=== PATIENT | male | born 1980 | race African-American/Black ===

== ENCOUNTER 2016-10-24 23:51 | Emergency (ER) | payer OTHER ==
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
== END 2016-10-25 01:40 | disposition home or self-care (01) ==
LOC: ER 23:51
DX: M54.2 Cervicalgia (principal); M25.521 Pain in right elbow; M54.9 Dorsalgia, unspecified; M25.571 Pain in right ankle and joints of right foot; M25.531 Pain in right wrist; V49.40XA Driver injured in collision with unspecified motor vehicles in traffic accident, initial encounter; R40.0 Somnolence; Z53.20 Procedure and treatment not carried out because of patient's decision for unspecified reasons
CPT/HCPCS: 99284

== ENCOUNTER 2017-08-29 07:20 | Emergency (ER) | payer SELFPAY ==
[2017-08-29 07:28] VITALS: BP 126/76
[2017-08-29] MEDS ORDERED: IBUPROFEN 800 MG TABLET PO ONE (07:34)
[2017-08-29] MEDS ORDERED: IBUPROFEN 800 MG TABLET ONE (07:38)
--- NOTE | 2017-08-29 07:57 | RADIOLOGY REPORT (SQ) ---
EXAM DESCRIPTION: Left hand, 3 views CLINICAL HISTORY: crush injury COMPARISON: None. FINDINGS: 3 views of the left hand. No acute fracture or dislocation. Normal osseous mineralization. No radiopaque foreign bodies or subcutaneous air. IMPRESSION: No acute fracture or dislocation.
--- NOTE | 2017-08-29 08:07 | ER Document Report ---
HPI - HPI Patient complains to provider of: Left hand injury Onset: Yesterday Onset/Duration: Sudden Quality of pain: Achy Pain Level: 4 Context: Patient states that he accidentally got his left hand closed between the pneumatic doors at the grocery store. Patient states that he is left-hand dominant. Associated Symptoms: Other - Left hand pain Exacerbated by: Movement Relieved by: Denies Similar symptoms previously: No Recently seen / treated by doctor: No - ROS ROS below otherwise negative: Yes Systems Reviewed and Negative: Yes All other systems reviewed and negative - NEURO Neurology: DENIES: Weakness - REPRODUCTIVE Reproductive: DENIES: : - MUSCULOSKELETAL Musculoskeletal: REPORTS: Extremity pain - left hand. DENIES: Swelling - DERM Skin Color: Normal Skin Problems: None Past Medical History - General Information source: Patient - Social History Smoking Status: Current Every Day Smoker Smoking Education Provided: Yes Frequency of alcohol use: Occasional Drug Abuse: None Occupation: Painting Family History: CAD - father Patient has suicidal ideation: No Patient has homicidal ideation: No - Past Medical History Cardiac Medical History: Reports: Hx Hypertension - does not require meds Renal/ Medical History: Denies: Hx Peritoneal Dialysis Musculoskeltal Medical History: Reports Hx Arthritis Surgical Hx: Negative - Immunizations Immunizations up to date: Yes Hx Diphtheria, Pertussis, Tetanus Vaccination: Yes Vertical Provider Document - CONSTITUTIONAL Agree With Documented VS: Yes Exam Limitations: No Limitations General Appearance: WD/WN, No Apparent Distress - INFECTION CONTROL TRAVEL OUTSIDE OF THE [place] IN LAST 30 DAYS: No - HEENT HEENT: Atraumatic, Normocephalic - NECK Neck: Normal Inspection - RESPIRATORY Respiratory: No Respiratory Distress - CARDIOVASCULAR Pulses: Normal: Radial - BACK Back: Normal Inspection - MUSCULOSKELETAL/EXTREMETIES Musculoskeletal/Extremeties: MAEW, Tender - tenderness to left thumb, Left 1,2, 3 metacarpals, no deformity, no edema, no ecchymosis, No Edema. negative: Eccymosis - NEURO Level of Consciousness: Awake, Alert, Appropriate Motor/Sensory: No Motor Deficit Notes: No tendon deficit - DERM Integumentary: Warm, Dry, No Rash Course - Vital Signs Vital signs: Temp Pulse Resp BP Pulse Ox 97.3 F 89 14 126/76 H 98 08/29/17 07:27 08/29/17 07:27 08/29/17 07:27 08/29/17 07:27 08/29/17 07:27 - Diagnostic Test Radiology reviewed: Reports reviewed Procedures - Immobilization Left Thumb Pre-Proc Neuro Vasc Exam: Normal Immobilizer type: Thumb spica Performed by: PCT Post-Proc Neuro Vasc Exam: Normal Alignment checked and good: Yes Discharge - Discharge Clinical Impression: Crush injury Left thumb sprain Qualifiers: Encounter type: initial encounter Sprain of finger site: unspecified site Qualified Code(s): S63.602A - Unspecified sprain of left thumb, initial encounter Sprain of hand, left Qualifiers: Encounter type: initial encounter Qualified Code(s): S63.92XA - Sprain of unspecified part of left wrist and hand, initial encounter Condition: Stable Disposition: HOME, SELF-CARE Instructions: Ice & Elevation ([facility]), Sprain ([facility]), Sprained Thumb ([facility]), Temporary Splint ([facility]) Additional Instructions: Return immediately for any new or worsening symptoms Followup with your primary care provider, call tomorrow to make a followup appointment Follow-up with orthopedics, call Wednesday for an appointment for recheck Prescriptions: Naproxen [Naprosyn 250 Nmg Tablet] 1 tab PO BID #14 tablet Forms: Smoking Cessation Education, Return to Work Referrals: ERIC WYATT DO [ACTIVE STAFF] - Follow up as needed
[2017-08-29] MEDS ORDERED: HYDROCODONE/ACETAMINOPHEN 5-325 MG TABLET PO ONE (08:27)
== END 2017-08-29 08:56 | disposition home or self-care (01) ==
LOC: ER 07:20
PROC: 2W3HX1Z Immobilization of Left Thumb using Splint (ICD-10-PCS; principal; 2017-08-29)
DX: S63.602A Unspecified sprain of left thumb, initial encounter (principal); S63.92XA Sprain of unspecified part of left wrist and hand, initial encounter; M79.642 Pain in left hand; W23.0XXA Caught, crushed, jammed, or pinched between moving objects, initial encounter; Y92.512 Supermarket, store or market as the place of occurrence of the external cause
CPT/HCPCS: 99283

== ENCOUNTER 2017-08-30 14:48 | Emergency (ER) | payer SELFPAY ==
--- NOTE | 2017-08-30 17:27 | RADIOLOGY REPORT (SQ) ---
EXAM DESCRIPTION: WRIST LEFT 3 VIEWS COMPLETED DATE/TIME: 08/30/2017 5:16 pm REASON FOR STUDY: wrist pain COMPARISON: 08/29/2017 TECHNIQUE: Three view series of the left ribs LIMITATIONS: None. FINDINGS: Overlying cast is identified. Alignment appears unchanged. IMPRESSION: Overlying cast. Alignment appears unchanged TECHNICAL DOCUMENTATION: JOB ID: [id number] [employer]- All Rights Reserved Reading location - IP/workstation name: [email or web address]
[2017-08-30] MEDS ORDERED: HYDROCODONE/ACETAMINOPHEN 5-325 MG TABLET PO ONE (17:47)
--- NOTE | 2017-08-30 17:49 | ER Document Report ---
ED Hand/Wrist Injury - General Chief Complaint: Wrist Pain Stated Complaint: LEFT WRIST PAIN Time Seen by Provider: 08/30/17 17:37 Mode of Arrival: Ambulatory Information source: Patient Notes: 37-year-old male presented to ED for swelling to his left hand. He states that he was seen in the ED today for increase in swelling to the left hand after he was seen 2 days ago for a left wrist injury. He states he had an x-ray done at that time and a splint applied. He states he was supposed to go to orthopedics but he could not get in there today and his hand had increased in pain due to the swelling. He states he had been elevating and icing the hand. He states he had a hard cast on and could not take it off. Patient did have a splint on his hand. TRAVEL OUTSIDE OF THE [place] IN LAST 30 DAYS: No - HPI Injury to: Hand - Patient had a injury on left wrist 2 days ago and was seen in the emergency room and a splint applied. He states it was too tight and it was swelling Onset: Other - 2 days ago Where: Public place Quality of pain: Throbbing Severity: Severe Pain Level: 5 Context: Other - Injury when his hand got caught in a pneumatic door at a grocery store - Related Data Allergies/Adverse Reactions: No Known Allergies Allergy (Verified 02/12/15 21:05) Past Medical History - General Information source: Patient - Social History Smoking Status: Current Every Day Smoker Cigarette use (# per day): Yes Smoking Education Provided: Yes - 4 minutes Frequency of alcohol use: Occasional Drug Abuse: None Occupation: [employer] Family History: CAD - father Patient has suicidal ideation: No Patient has homicidal ideation: No - Past Medical History Cardiac Medical History: Reports: Hx Hypertension - does not require meds Pulmonary Medical History: Reports: None EENT Medical History: Reports: None Neurological Medical History: Reports: None Endocrine Medical History: Reports: None Renal/ Medical History: Reports: None Malignancy Medical History: Reports None GI Medical History: Reports: None Musculoskeltal Medical History: Reports Hx Arthritis Skin Medical History: Reports None Psychiatric Medical History: Reports: None Traumatic Medical History: Reports: Hx Fractures Infectious Medical History: Reports: None Surgical Hx: Negative Past Surgical History: Reports: None - Immunizations Immunizations up to date: Yes Hx Diphtheria, Pertussis, Tetanus Vaccination: Yes Review of Systems - Review of Systems Constitutional: No symptoms reported EENT: No symptoms reported Cardiovascular: No symptoms reported Respiratory: No symptoms reported Gastrointestinal: No symptoms reported Genitourinary: No symptoms reported Male Genitourinary: No symptoms reported Musculoskeletal: No symptoms reported, Other - Swelling to left hand and wrist Skin: No symptoms reported Hematologic/Lymphatic: No symptoms reported Neurological/Psychological: No symptoms reported -: Yes All other systems reviewed and negative Physical Exam - Vital signs Vitals: Temp Pulse Resp BP Pulse Ox 98.3 F 87 15 119/80 100 08/30/17 15:10 08/30/17 15:10 08/30/17 15:10 08/30/17 15:10 08/30/17 15:10 Interpretation: Normal - General General appearance: Appears well, Alert - HEENT Head: Normocephalic, Atraumatic Eyes: Normal Pupils: PERRL - Respiratory Respiratory status: No respiratory distress Chest status: Nontender Breath sounds: Normal Chest palpation: Normal - Cardiovascular Rhythm: Regular Heart sounds: Normal auscultation Murmur: No - Abdominal Inspection: Normal Distension: No distension Bowel sounds: Normal Tenderness: Nontender Organomegaly: No organomegaly - Back Back: Normal, Nontender - Extremities General upper extremity: Normal color, Normal temperature General lower extremity: Normal inspection, Nontender, Normal color, Normal ROM , Normal temperature, Normal weight bearing. No: Scott's sign Hand: Tender, No evidence of human bite, No evidence of FB, Swelling, Other - Patient had a splint applied yesterday. His fingers were mildly swollen complained of pain to his hands wrist and fingers decreased range of motion due to the splint. - Neurological Neuro grossly intact: Yes Cognition: Normal Orientation: AAOx4 [place] Coma Scale Eye Opening: Spontaneous [place] Coma Scale Verbal: Oriented [place] Coma Scale Motor: Obeys Commands [place] Coma Scale Total: 15 Speech: Normal Motor strength normal: LUE, RUE, LLE, RLE Sensory: Normal - Psychological Associated symptoms: Normal affect, Normal mood - Skin Skin Temperature: Warm Skin Moisture: Dry Skin Color: Normal Course - Re-evaluation Re-evalutation: 08/30/17 20:32 Hemant wraps removed from splint and reapplies looser to decrease the swelling to the left hand and wrist patient states that this did decrease the pain. Patient was given a [place] while in the emergency room and instructed to follow- up with orthopedic and his primary care doctor as previously instructed. - Vital Signs Vital signs: Temp Pulse Resp BP Pulse Ox 97.9 F 75 18 110/75 94 08/30/17 18:01 08/30/17 18:01 08/30/17 18:01 08/30/17 18:01 08/30/17 18:01 - Diagnostic Test Radiology reviewed: Image reviewed, Reports reviewed Discharge - Discharge Clinical Impression: Sprain of hand, left Qualifiers: Encounter type: subsequent encounter Qualified Code(s): S63.92XD - Sprain of unspecified part of left wrist and hand, subsequent encounter Condition: Stable Disposition: HOME, SELF-CARE Additional Instructions: SPLINT PRECAUTIONS: A splint has been placed. This will protect the area while healing begins. Your problem does NOT normally require a cast. It MUST, however, be held still! Keep the splint on ALL THE TIME until instructed to remove it by the doctor. As you begin to use the area, be careful. You shouldn't do anything which causes discomfort -- you may disturb the injury even with the splint in place. After the initial period of rest and elevation, if splint does not prevent pain when you move, come back. You may require placement of a different splint , or a cast. If there is unexpected severe pain, or numbness, discoloration, or swelling beyond the splint, you should return at once. If you feel that the splint has broken or become loose, come back. If your hand has any more swelling please loosen the Hemant wraps that are on the splint. Please keep the hand elevated above the heart and ice as ordered. USE OF CRUTCHES: The doctor has recommended that you not bear weight at this time. You will need to use crutches. Adjust the crutches so the tops come to about two inches under the armpit while you are standing upright. Use your hands -- not your armpits -- to support your weight. To get into a chair, support yourself with one crutch on the injured side. Hold the chair with the other hand, then lower yourself while putting all your weight on the good leg. Going up stairs is `good leg up, step up, then bring up crutches and bad leg.' Down stairs is `bad leg and crutches down, then bring good leg down.' If you develop numbness or swelling in an arm or hand, you are using the crutches incorrectly. Return if you are having any problems with the crutches. ICE & ELEVATION: Apply ice packs frequently against the painful area. Many different schedules are recommended, such as "20 minutes on, 20 minutes off" or "one hour ice, two hours rest." If you need to work, you may need to go longer between ice treatments. You should plan to have the area ice packed AT LEAST one- fourth of the time. The ice should be applied over the wrap, tape, or splint, or over a layer of cloth -- not directly against the skin. Some ice bags have a built-in cloth and can be put directly on the skin. Your injured part should be elevated as much as possible over the next 48 hours. Try to keep the injury above the level of the heart. Avoid use of the injured area. Elevation and rest will decrease the swelling. USE OF [id number] IBUPROFEN: Ibuprofen (Advil, Nuprin, Medipren, Motrin IB) is a medication for fever and pain control. In addition, it has anti- inflammatory effects which may be beneficial, especially in the treatment of injuries. It's best to take ibuprofen with food. Persons with ulcer disease or allergy to aspirin should notify their physician of this before taking ibuprofen. Ibuprofen can be given every four to six hours, for a total of four doses daily. Age Pain or fever dose Antiinflammatory dose 6-8 yr 200 mg (1 tab) 200 mg (1 tab) 9-11 yr 200 mg (1 tab) 200-400 mg (1-2 tab) 11-14 yr 200-400 mg (1-2 tab) 400 mg (2 tab) 15-adult 400 mg (2 tab) 600 mg (3 tab) ORAL NARCOTIC MEDICATION: You have been given a norco for pain control. This medication is a narcotic. It's best taken with food, as nausea can result if taken on an empty stomach. Don't operate machinery or drive within six hours of taking this medication. Do not combine this medicine with alcohol, or with any medication which can cause sedation (such as cold tablets or sleeping pills) unless you get permission from the physician. Narcotics tend to cause constipation. If possible, drink plenty of fluids and eat a diet high in fiber and fruits. Please be aware that prescription narcotics also have the potential for abuse. People become addicted to these medications because of the general sense of wellbeing that they induce. This feeling along with a significant reduction in tension, anxiety, and aggression provides a stimulating seductive quality to these drugs. Once your pain is under control, we encourage you to discard your unused narcotics. FOLLOW-UP CARE: If you have been referred to a physician for follow-up care, call the physician s office for an appointment as you were instructed or within the next two days. If you experience worsening or a significant change in your symptoms, notify the physician immediately or return to the Emergency Department at any time for re-evaluation. Forms: Smoking Cessation Education Referrals: ERIC WYATT, [ACTIVE STAFF] - Follow up as needed
[2017-08-30 18:06] VITALS: BP 110/75
== END 2017-08-30 18:05 | disposition home or self-care (01) ==
LOC: ER 14:48
DX: S63.92XD Sprain of unspecified part of left wrist and hand, subsequent encounter (principal); W23.0XXD Caught, crushed, jammed, or pinched between moving objects, subsequent encounter; I10 Essential (primary) hypertension; F17.210 Nicotine dependence, cigarettes, uncomplicated; Z71.6 Tobacco abuse counseling
CPT/HCPCS: 99283; 99406

== ENCOUNTER 2020-02-19 17:02 | Emergency (ER) | payer SELFPAY ==
--- NOTE | 2020-02-19 19:45 | ER Document Report ---
ED Extremity Problem, Lower - General Chief Complaint: Leg Injury Stated Complaint: FALL/BACK PAIN Time Seen by Provider: 02/19/20 19:31 Primary Care Provider: [facility] [Provider Group] - Follow up as needed TRAVEL OUTSIDE OF THE [place] IN LAST 30 DAYS: No - HPI Notes: Patient is a 39 y/o male with a hx of degenerative disc disease who presents for right leg pain after a fall. Patient states he was carrying his [id number] upstairs when he fell on the top landing, and fell onto his right leg. He is able to ambulate but reports difficulty due to pain. Patient states he has pain in his right hip that radiates down his leg. He denies saddle numbness, urinary and bowel incontinence, nausea and vomiting. He has taken ibuprofen and tylenol with no relief. - Related Data Allergies/Adverse Reactions: No Known Allergies Allergy (Verified 02/19/20 19:23) Past Medical History - General Information source: Patient - Social History Smoking Status: Current Every Day Smoker Frequency of alcohol use: Occasional Drug Abuse: None Family History: CAD - father Patient has homicidal ideation: No - Past Medical History Cardiac Medical History: Reports: Hx Hypertension - does not require meds Renal/ Medical History: Denies: Hx Peritoneal Dialysis Musculoskeletal Medical History: Reports Hx Arthritis Traumatic Medical History: Reports: Hx Fractures - Immunizations Immunizations up to date: Yes Hx Diphtheria, Pertussis, Tetanus Vaccination: Yes Review of Systems - Review of Systems Constitutional: No symptoms reported EENT: No symptoms reported Cardiovascular: No symptoms reported Respiratory: No symptoms reported Gastrointestinal: No symptoms reported Genitourinary: No symptoms reported Male Genitourinary: No symptoms reported Musculoskeletal: See HPI Skin: No symptoms reported Hematologic/Lymphatic: No symptoms reported Neurological/Psychological: No symptoms reported Physical Exam - Vital signs Vitals: Temp Pulse Resp BP Pulse Ox 98.2 F 83 20 120/75 100 02/19/20 17:43 02/19/20 17:43 02/19/20 17:43 02/19/20 17:43 02/19/20 17:43 - Notes Notes: PHYSICAL EXAMINATION: VITALS: Vitals reviewed and within normal limits. GENERAL: Well-appearing, well-nourished and in no acute distress. HEAD: Atraumatic, normocephalic. LUNGS: Breath sounds clear to auscultation bilaterally and equal. No wheezes rales or rhonchi. HEART: Regular rate and rhythm without murmurs. ABDOMEN: Soft, nontender, normoactive bowel sounds. No guarding, no rebound. No masses appreciated. EXTREMITIES: Nontender right hip, thigh and knee. Tenderness to mid lower leg and ankle. Palpable DP and PT pulses. Good cap refill. ROM limited secondary to pain. BACK: 5 out of 5 strength both distally and proximally bilateral lower extremities. 2+ patellar reflexes bilaterally. No clonus. Sensation grossly intact in the bilateral lower extremities. No point tenderness over bony ve rtebrae. NEURO: No focal deficits. CN II-XII grossly intact. Antalgic gait. PSYCH: Normal mood, normal affect. SKIN: Warm, Dry, normal turgor, no rashes or lesions noted. Course - Re-evaluation Re-evalutation: Patient is a 39 y/o male and presents with right leg pain after falling yesterday. Patient denies saddle anesthesia, bowel and urinary incontinence. Vital signs are within normal limits. On exam, nontender right hip, thigh and knee. Tenderness to mid lower leg and ankle. Palpable DP and PT pulses. No point tenderness over vertebral bodies. Right hip and tib/fib XRs are negative with no fracture. Based on history and physical, I have a very low suspicion of a concerning etiology of pain including epidural compression syndrome, spinal infection, transverse myelitis, malignancy, acute lower extremity claudication, neurogenic claudication, or ankylosing spondylitis. Plan to manage conservatively with 60mg IM toradol here in the ED - Acetaminophen 650 q 4 + ibuprofen 600 q 6 - Continue normal daily activities as tolerated by pain - Instruct to follow up with primary care provider if symptoms not improving - Provide careful return precautions and concerning symptoms to watch for. Patient understands and is in agreement with the plan. - Vital Signs Vital signs: Temp Pulse Resp BP Pulse Ox 98.2 F 83 20 120/75 100 02/19/20 17:43 02/19/20 17:43 02/19/20 17:43 02/19/20 17:43 02/19/20 17:43 - Diagnostic Test Radiology reviewed: Reports reviewed Radiology results interpreted by me: Hip/Pelvis X-Ray 02/19/20 19:37 IMPRESSION: Negative right hip series. Tibia/Fibula X-Ray 02/19/20 19:37 IMPRESSION: 1. No acute findings. Discharge - Discharge Clinical Impression: Right leg pain Condition: Stable Disposition: HOME, SELF-CARE Additional Instructions: Leg Pain, Nonspecific We did not find an obvious cause for your leg pain. There's no sign of blood clot, infection, or other serious disease. Possible causes of vague leg pain include muscle or joint inflammation, disc disease in the lower back, pressure on the nerves in the back, or reduced blood flow through the arteries of the leg. Rest the leg. Pain can be eased with an antiinflammatory pain medicine such as ibuprofen. If the pain involves a small area, a heating pad might help. Call the doctor or return if the leg becomes swollen, weak, discolored, or increasingly painful, or if you develop any other significant change in your health. Sciatica Your symptoms suggest "sciatica." The pain of sciatica typically radiates down the leg. Numbness in the foot or calf may also occur. Sciatica is caused by irritation of the sciatic nerve or its branches. The irritation can be due to a herniated disk in the spine, swelling and inflammation in the muscles surrounding the sciatic nerve, or direct injury of the nerve itself. Most cases of sciatica will resolve with medical treatment. Bed rest is usually recommended initially. Surgery is only necessary when the condition will not improve with rest and antiinflammatory medication. Muscle relaxers are often given if muscle soreness is present. Re-examination is necessary if you develop increasing numbness, localized weakness in the foot or ankle, or if the pain does not respond to rest. Referrals: [facility] [Provider Group] - Follow up as needed
--- NOTE | 2020-02-19 20:37 | RADIOLOGY REPORT (SQ) ---
EXAM DESCRIPTION: Right tib-fib RadLex: XR TIBIA FIBULA 2 VIEWS Views: 2 CLINICAL HISTORY: 39 years Male; right leg pain; COMPARISON: None. FINDINGS: Negative for acute fracture, dislocation, or radiopaque foreign body. IMPRESSION: 1. No acute findings.
--- NOTE | 2020-02-19 20:41 | RADIOLOGY REPORT (SQ) ---
EXAM DESCRIPTION: XR HIP 2 OR MORE VIEWS COMPLETED DATE/TME: 02/19/2020 20:01 CLINICAL HISTORY: 39 years, Male, right leg pain COMPARISON: None. TECHNIQUE: AP view of the pelvis and frog-lateral view of the right hip. FINDINGS: No evidence for fracture dislocation. No suspicious destructive or arthritic changes. Soft tissues are unremarkable. IMPRESSION: Negative right hip series.
[2020-02-20] MEDS ORDERED: KETOROLAC TROMETHAMINE 60 MG/2 ML SDV IM ONE
[2020-02-20 00:17] VITALS: BP 112/74
== END 2020-02-20 00:16 | disposition home or self-care (01) ==
LOC: ER 17:02
DX: M79.604 Pain in right leg (principal); M25.551 Pain in right hip; W10.9XXA Fall (on) (from) unspecified stairs and steps, initial encounter; Y93.F9 Activity, other caregiving; F17.200 Nicotine dependence, unspecified, uncomplicated; I10 Essential (primary) hypertension
CPT/HCPCS: 99284; 96372; 73502; 73590; J1885